=== PATIENT | female | born 1980 | race American Indian/Alaskan Native ===

== ENCOUNTER 2017-07-01 12:07 | Emergency (ER) | payer SELFPAY ==
[2017-07-01 12:13] VITALS: BP 125/77
[2017-07-01] MEDS ORDERED: MOTRIN PO ONE (13:19)
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
[2017-07-01 13:47] LABS: Bilirubin,Urine NEG (Negative); Blood,Urine MOD (Negative); Color,Urine Yellow (Yellow); Mucus,Urine FEW /HPF; Nitrite,Urine NEG (Negative); Protein,Urine <15 mg/dL mg/dL (Negative); WBC,Urine < 1.0 /HPF (0.0-6.0)
[2017-07-01 13:52] LABS: HCG Qualitative,Urine Negative (Negative)
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
== END 2017-07-01 16:00 | disposition home or self-care (01) ==
LOC: ED 12:07
DX: R10.9 Unspecified abdominal pain (principal)
CPT/HCPCS: 81001; 81025; 99284

== ENCOUNTER 2017-09-25 08:36 | Emergency (ER) | payer MEDICAID, OTHER ==
[2017-09-25 08:45] VITALS: BP 126/76
--- NOTE | 2017-09-25 10:11 | Emergency Department Report ---
HPI - General Chief Complaint: Earache Time Seen by Provider: 09/25/17 10:09 - HPI HPI: Patient reports right ear pain 3 days with positive clear drainage. She said that she did scratch that her years and she doesn't know what's going on. She denies any trauma. Denies any fever or chills. Denies any nasal congestion or runny nose. Denies any nausea or vomiting. She says she's been putting cotton in her ear for drainage. No medication taken. Denies any cough, shortness of breath, chest pain. Denies any abdominal pain. Denies headache or facial pain or pressure. Denies any neck pain or stiffness. Ear pain is 6 out of 10, achy and Worse with chilling. Denies taking any medication for pain. Denies any loss of hearing ED Past Medical Hx - Past Medical History Previous Medical History?: Yes Additional medical history: Vaginal dleivery 02-13-2003, anemia - Surgical History Past Surgical History?: Yes Additional Surgical History: Myomectomy, Leep - Family History Family history: hypertension - Social History Smoking Status: Never Smoker Substance Use Type: Alcohol Other Social History: single, lives at home - Medications Home Medications: Home Medications Medication Instructions Recorded Confirmed Last Taken Type Cyclobenzaprine [Flexeril] 10 mg PO TID PRN #10 tablet 07/01/17 Unknown Rx Ibuprofen [Motrin 800 MG tab] 800 mg PO Q8HR PRN #12 tablet 09/25/17 Unknown Rx Neomy/Polymyx B/Hc (Otic) Soln 4 drops OTIC Q8H 7 Days #1 bottle 09/25/17 Unknown Rx [Cortisporin (Otic) Soln] ED Review of Systems ROS: Stated complaint: EAR PAIN Other details as noted in HPI Constitutional: denies: chills, fever Eyes: denies: eye pain, eye discharge, vision change ENT: ear pain. denies: throat pain, congestion (right ear) Respiratory: denies: cough, shortness of breath, SOB with exertion, SOB at rest , wheezing Cardiovascular: denies: chest pain, palpitations Gastrointestinal: denies: abdominal pain, nausea, vomiting, diarrhea, constipation Musculoskeletal: denies: back pain, joint swelling, arthralgia Skin: denies: rash, lesions Neurological: denies: headache, abnormal gait, vertigo Physical Exam - Physical Exam Vital Signs: Vital Signs 09/25/17 08:42 Temperature 98.5 F Pulse Rate 67 Respiratory 18 Rate Blood Pressure 126/76 O2 Sat by Pulse 100 Oximetry General: This is a 36-year-old female well-nourished well-developed in no acute distress Physical Exam: Head: Normocephalic atraumatic Ears:BIateral TM pearly sargent. Right EAC with redness and swelling and right tragus tenderness to palpate. No drainage noted. No mastoid bone tenderness. Mouth: Moist, no pharyngeal erythema or exudate . UVULA midline and oral airways patent. No peritonsillar abscess Neck: Nontender to palpate, supple, normal range of motion. No adenopathy. No c- spine tenderness. Nose: Bilateral nasal mucosa normal exam .maxillary and frontal sinuses tender to palpate. Eyes: Bilateral Sclerae and conjunctiva without injection. Bilateral pupils equal and reactive to light. Bilateral lids are normal. Normal accommodation.BEOMI Lungs: Clear to auscultate bilaterally, no rhonchi wheezes or rales. Normal work of breathing and no chest wall tenderness CV: S1, S2. Regular rate and rhythm negative murmur. Capillary refill is less than 3 seconds Abdomen: Nontender to palpation in all quadrants: No guarding or rebound tenderness. Positive bowel sounds in all quadrants Extremity: No clubbing, cyanosis or edema. +2 pulses in all extremities and no neurovascular compromise Skin: Clean dry and intact, no rashes or lesions Psych: Normal mood and behavior ED Course Vital Signs 09/25/17 08:42 Temperature 98.5 F Pulse Rate 67 Respiratory 18 Rate Blood Pressure 126/76 O2 Sat by Pulse 100 Oximetry - Reevaluation(s) Reevaluation #1: 09/25/17 10:44 Patient stable throughout ED course. Motrin 800 mg given for ear pain ED Medical Decision Making - Medical Decision Making ED Course : Patient and with complaint of right ear pain and drainage. Physical findings for right EAC erythema, redness without any drainage and tragus is tender to palpate. Patient and educated on diagnosis and treatment plan and also instructed on smoking cessation. She was on the senna diagnosis to treatment plan. Patient with otitis externa and discharged home in Corticosporin otic, Motrin and to follow-up with a primary care physician. I instructed if she does not have one and she is to follow-up with [facility]. Critical care attestation.: If time is entered above; I have spent that time in minutes in the direct care of this critically ill patient, excluding procedure time. ED Disposition Clinical Impression: Otalgia, right ear Otitis externa of right ear Qualifiers: Otitis externa type: unspecified type Chronicity: acute Qualified Code(s): H60.501 - Unspecified acute noninfective otitis externa, right ear Disposition: TO HOME OR SELFCARE Is pt being admited?: No Does the pt Need Aspirin: No Condition: Stable Instructions: Otitis Externa (ED), Earache (ED) Additional Instructions: Please follow up with [facility] or with a primary care physician for right ear infection. Motrin as needed for pain to right ear Take Corticosporin otic solution 4 drops every 8 hours 7 days. Prescriptions: Ibuprofen [Motrin 800 MG tab] 800 mg PO Q8HR PRN #12 tablet PRN Reason: Pain Neomy/Polymyx B/Hc (Otic) Soln [Cortisporin (Otic) Soln] 4 drops OTIC Q8H 7 Days #1 bottle Referrals: PRIMARY CARE, [Primary Care Provider] - 2-3 Days [facility] [Outside] - 2-3 Days MULUGETA TOMAS MD [Staff Physician] - 2-3 Days Forms: Work/School Release Form(ED)
[2017-09-25] MEDS ORDERED: MOTRIN PO ONE (10:44)
== END 2017-09-25 11:05 | disposition home or self-care (01) ==
LOC: ED 08:36
DX: H92.01 Otalgia, right ear (principal)
CPT/HCPCS: 99282

== ENCOUNTER 2019-07-17 09:07 | Emergency (ER) | payer SELFPAY ==
--- NOTE | 2019-07-17 11:59 | Emergency Department Report ---
ED Back Pain/Injury HPI - General Chief Complaint: Back Pain/Injury Stated Complaint: WORK INJURY Time Seen by Provider: 07/17/19 11:50 Source: patient Limitations: No Limitations - History of Present Illness Initial Comments: 38-year-old -[place] female patient presents with complaints of back pain after slipping on ice or water in the freezer at work and falling directly onto her back yesterday. She rates her pain as 8/10 in severity and states it mainly occurs with movement of the spine. She states pain improves when she sits still. She denies any head trauma, abdominal pain, loss of bladder/bowel control, numbness/tingling/weakness in her limbs, difficulty with ambulation, or hematuria/hematochezia. MD Complaint: back pain, back injury, fall -: Sudden Consistency: intermittent Improves With: immobilization Worsens With: movement - Related Data Previous Rx's Medication Instructions Recorded Last Taken Type Cyclobenzaprine [Flexeril] 10 mg PO TID PRN #10 tablet 07/01/17 Unknown Rx Ibuprofen [Motrin 800 MG tab] 800 mg PO Q8HR PRN #12 tablet 09/25/17 Unknown Rx Neomy/Polymyx B/Hc (Otic) Soln 4 drops OTIC Q8H 7 Days #1 bottle 09/25/17 Unknown Rx [Cortisporin (Otic) Soln] Cyclobenzaprine [Flexeril 10mg] 10 mg PO Q12H PRN #14 tablet 02/22/18 Unknown Rx Ibuprofen [Motrin] 600 mg PO Q8H PRN #12 tablet 02/22/18 Unknown Rx Ibuprofen [Motrin 800 MG tab] 800 mg PO Q8HR PRN #21 tablet 07/17/19 Unknown Rx methOCARBAMOL [Robaxin TAB] 1,500 mg PO Q8H PRN #30 tablet 07/17/19 Unknown Rx Allergies Allergy/AdvReac Type Severity Reaction Status Date / Time No Known Allergies Allergy Unverified 07/17/19 13:07 ED Review of Systems ROS: Stated complaint: WORK INJURY Other details as noted in HPI Respiratory: denies: shortness of breath Cardiovascular: denies: chest pain Gastrointestinal: denies: abdominal pain Musculoskeletal: back pain. denies: joint swelling Skin: denies: lesions Neurological: denies: headache, weakness, numbness, paresthesias, abnormal gait ED Past Medical Hx - Past Medical History Previous Medical History?: Yes Additional medical history: Vaginal dleivery 02-13-2003, anemia - Surgical History Past Surgical History?: Yes Additional Surgical History: Myomectomy, Leep - Social History Smoking Status: Never Smoker Substance Use Type: None - Medications Home Medications: Home Medications Medication Instructions Recorded Confirmed Last Taken Type Cyclobenzaprine [Flexeril] 10 mg PO TID PRN #10 tablet 07/01/17 Unknown Rx Ibuprofen [Motrin 800 MG tab] 800 mg PO Q8HR PRN #12 tablet 09/25/17 Unknown Rx Neomy/Polymyx B/Hc (Otic) Soln 4 drops OTIC Q8H 7 Days #1 bottle 09/25/17 Unknown Rx [Cortisporin (Otic) Soln] Cyclobenzaprine [Flexeril 10mg] 10 mg PO Q12H PRN #14 tablet 02/22/18 Unknown Rx Ibuprofen [Motrin] 600 mg PO Q8H PRN #12 tablet 02/22/18 Unknown Rx Ibuprofen [Motrin 800 MG tab] 800 mg PO Q8HR PRN #21 tablet 07/17/19 Unknown Rx methOCARBAMOL [Robaxin TAB] 1,500 mg PO Q8H PRN #30 tablet 07/17/19 Unknown Rx ED Physical Exam - General Limitations: No Limitations General appearance: alert, in no apparent distress - Head Head exam: Present: atraumatic, normocephalic - Eye Eye exam: Present: normal appearance - Neck Neck exam: Present: tenderness (Tenderness to palpation noted bilaterally over trapezius muscles, no spinal tenderness noted), full ROM - Respiratory Respiratory exam: Absent: respiratory distress - Cardiovascular Cardiovascular Exam: Present: regular rate - GI/Abdominal GI/Abdominal exam: Present: soft. Absent: tenderness - Extremities Exam Extremities exam: Present: normal inspection, full ROM - Back Exam Back exam: Present: paraspinal tenderness (Lumbar and thoracic), vertebral tenderness (Lumbar and thoracic) - Neurological Exam Neurological exam: Present: alert, oriented X3, normal gait. Absent: motor sensory deficit - Expanded Neurological Exam Expanded Sensory exam: Upper Extremity Light Touch: Normal, Lower Extremity Light Touch: Normal Motor strength exam: RUE: 5, LUE: 5, RLE: 5, LLE: 5 - Psychiatric Psychiatric exam: Present: normal affect, normal mood - Skin Skin exam: Present: warm, dry, intact, normal color. Absent: rash ED Course Vital Signs 07/17/19 07/17/19 09:38 14:23 Temperature 97.6 F Pulse Rate 92 H 70 Respiratory 18 16 Rate Blood Pressure 105/71 Blood Pressure 134/84 [Left] O2 Sat by Pulse 99 100 Oximetry ED Medical Decision Making - Radiology Data Radiology results: report reviewed THORACIC SPINE 2 VIEWS INDICATION / CLINICAL INFORMATION: pain after fall onto back COMPARISON: None available. FINDINGS: BONES / JOINT(S): No acute fracture or subluxation. No significant arthritis. SOFT TISSUES: No significant abnormality. LUMBAR SPINE 2 VIEWS INDICATION / CLINICAL INFORMATION: pain after fall onto back. COMPARISON: None available. FINDINGS: No fracture, subluxation or other significant abnormality. No significant degenerative change. - Medical Decision Making Patient here with back pain after a fall at work. She denies any red flag symptoms. She is ambulating without difficulty and her neuro exam is normal. X-rays of the lumbar and thoracic spine are normal. Recommend conservative treatment for back strain and follow-up with primary care. She is well- appearing in stable for discharge home. Discussed strict return precautions in detail with patient who verbalized understanding. Critical care attestation.: If time is entered above; I have spent that time in minutes in the direct care of this critically ill patient, excluding procedure time. ED Disposition Clinical Impression: Back strain Qualifiers: Encounter type: initial encounter Qualified Code(s): S39.012A - Strain of muscle, fascia and tendon of lower back, initial encounter Disposition: - TO HOME OR SELFCARE Is pt being admited?: No Condition: Stable Instructions: Low Back Strain (ED) Prescriptions: Ibuprofen [Motrin 800 MG tab] 800 mg PO Q8HR PRN #21 tablet PRN Reason: pain methOCARBAMOL [Robaxin TAB] 1,500 mg PO Q8H PRN #30 tablet PRN Reason: muscle tightness Referrals: PRIMARY CARE, [Primary Care Provider] - 3-5 Days Forms: Work/School Release Form(ED)
[2019-07-17] MEDS ORDERED: IBUPROFEN 800 MG TAB PO ONE (12:23)
--- NOTE | 2019-07-17 12:56 | XRay Report ---
LUMBAR SPINE 2 VIEWS INDICATION / CLINICAL INFORMATION: pain after fall onto back. COMPARISON: None available. FINDINGS: No fracture, subluxation or other significant abnormality. No significant degenerative change. Signer Name: Ramírez Reveles MD Signed: 07/17/2019 12:51 PM Workstation Name: [id number]
--- NOTE | 2019-07-17 12:56 | XRay Report ---
THORACIC SPINE 2 VIEWS INDICATION / CLINICAL INFORMATION: pain after fall onto back COMPARISON: None available. FINDINGS: BONES / JOINT(S): No acute fracture or subluxation. No significant arthritis. SOFT TISSUES: No significant abnormality. ADDITIONAL FINDINGS: None. Signer Name: Chu Guevara MD Signed: 07/17/2019 12:52 PM Workstation Name: [id number]
[2019-07-17 14:25] VITALS: BP 134/84
== END 2019-07-17 14:23 | disposition home or self-care (01) ==
LOC: ED 09:07
DX: S39.012A Strain of muscle, fascia and tendon of lower back, initial encounter (principal); Z98.890 Other specified postprocedural states; Z79.1 Long term (current) use of non-steroidal anti-inflammatories (NSAID); Z79.899 Other long term (current) drug therapy; W01.0XXA Fall on same level from slipping, tripping and stumbling without subsequent striking against object, initial encounter; Y93.89 Activity, other specified; Y92.89 Other specified places as the place of occurrence of the external cause; Y99.8 Other external cause status
CPT/HCPCS: 72070; 72100